=== PATIENT | male | born 1965 | race Caucasian/White ===

== ENCOUNTER 2017-09-02 09:15 | Emergency (ER) | payer BC ==
[~2017-09-02] VITALS: Ht 182.9 cm; Wt 90.0 kg
[2017-09-02 09:18] VITALS: BP 198/95; PULSE 83; RESP 16; TEMP 97.7; O2SAT 100
[2017-09-02] MEDS ORDERED: SODIUM CHLOR 0.9% 1000 ML INJ 1,000 ML IV SCH (09:32)
--- NOTE | 2017-09-02 09:38 | PD ---
HPI Chief Complaint: Abdominal Pain Time Seen by Provider: 09:20 Travel History International Travel<30 days: No Contact w/Intl Traveler<30days: No Traveled to known affect area: No History of Present Illness HPI 52-year-old male with PMH of GERD, hiatal hernia repair 2 presents the ED for evaluation of intermittent epigastric and right upper quadrant pain. Onset about a week ago. Rated 10/10, sharp, sometimes exacerbated by eating. No alleviating factors reported. Pain radiates into the back and into the right upper quadrant. Patient had episode of pain lasted 3 or 4 hours yesterday. Pain started again this morning around 8am after the patient ate a [place] toast. The patient endorses one episode of accompanying vomiting 1 week ago. He denies fevers, chills, nausea, difficulty swallowing, chest pain, palpitations, shortness of breath, changes in bowel habits, melena, hematochezia , dysuria. He can identify no acute injury. He has been treating with Zantac and Maalox with no improvement of symptoms. He saw his apprentice painter neckties last week and has a gastroscopy scheduled for next week. The patient is visiting from [place]. Quit smoking in 1999. No familial cardiac history. States he is otherwise healthy and takes no other daily medications. [facility] Social History Tobacco Use: No (quit 1999) Allergies-Medications (Allergen,Severity, Reaction): Coded Allergies: No Known Allergies (Unverified , 09/02/17) Reported Meds & Prescriptions Reported Meds & Active Scripts Active [place] (Hydrocodone-Acetaminophen) 5 Mg-325 Mg Tab 1 Tab PO Q6H PRN Ranitidine Liq (Ranitidine HCl) 15 Mg/Ml Syp 150 Mg PO BID 7 Days Reported Nexium (Esomeprazole DR) 40 Mg Capdr 40 Mg PO DAILY Review of Systems Except as stated in HPI: all other systems reviewed are Neg Physical Exam Narrative GENERAL: Well-nourished, well-developed white male no acute distress. SKIN: Focused skin assessment warm/dry. HEAD: Normocephalic. EYES: No scleral icterus. No injection or drainage. NECK: Supple, trachea midline. No JVD or lymphadenopathy. CARDIOVASCULAR: Regular rate and rhythm without murmurs, gallops, or rubs. RESPIRATORY: Breath sounds clear and equal bilaterally. No accessory muscle use. GASTROINTESTINAL: Abdomen soft, nondistended. Tender to palpation in the epigastric region. Active bowel sounds. Negative Ring sign. No palpable hepatosplenomegaly. MUSCULOSKELETAL: No cyanosis, or edema. BACK: Nontender without obvious deformity. No CVA tenderness. Data Data Last Documented VS Vital Signs Date Time Temp Pulse Resp B/P (MAP) Pulse Ox O2 Delivery O2 Flow Rate FiO2 09/02/17 11:44 70 16 152/84 (106) 98 09/02/17 09:51 Room Air 09/02/17 09:18 97.7 Orders Orders Urinalysis - C+S If Indicated (09/02/17 09:19) Complete Blood Count With Diff (09/02/17 09:32) Comprehensive Metabolic Panel (09/02/17 09:32) Lipase (09/02/17 09:32) Lactic Acid (09/02/17 09:32) Prothrombin Time / Inr (Pt) (09/02/17 09:32) Act Partial Throm Time (Ptt) (09/02/17 09:32) Ct Abd/Pel W Iv Contrast(Rout) (09/02/17 09:32) Iv Access Insert/Monitor (09/02/17 09:32) Ecg Monitoring (09/02/17 09:32) Oximetry (09/02/17 09:32) Sodium Chlor 0.9% 1000 Ml Inj (Ns 1000 M (09/02/17 09:32) Sodium Chloride 0.9% Flush (Ns Flush) (09/02/17 09:45) Electrocardiogram (09/02/17 09:32) Famotidine Inj (Pepcid Inj) (09/02/17 09:45) Al-Mag Hy-Si 40-40-4 Mg/Ml Liq (Mag-Al P (09/02/17 09:45) Lidocaine 2% Viscous (Xylocaine 2% Visco (09/02/17 09:45) Troponin I (09/02/17 09:32) Iohexol 350 Inj (Omnipaque 350 Inj) (09/02/17 10:42) Radiology Film Requests (09/02/17 ) Ed Discharge Order (09/02/17 11:25) Labs Laboratory Tests Test 09/02/17 09:35 09/02/17 09:40 09/02/17 10:35 White Blood Count 6.0 TH/MM3 Red Blood Count 5.86 MIL/MM3 Hemoglobin 16.4 GM/DL Hematocrit 49.9 % Mean Corpuscular Volume 85.2 FL Mean Corpuscular Hemoglobin 28.0 PG Mean Corpuscular Hemoglobin Concent 32.9 % Red Cell Distribution Width 12.0 % Platelet Count 220 TH/MM3 Mean Platelet Volume 8.1 FL Neutrophils (%) (Auto) 64.0 % Lymphocytes (%) (Auto) 31.4 % Monocytes (%) (Auto) 2.1 % Eosinophils (%) (Auto) 1.8 % Basophils (%) (Auto) 0.7 % Neutrophils # (Auto) 3.9 TH/MM3 Lymphocytes # (Auto) 1.9 TH/MM3 Monocytes # (Auto) 0.1 TH/MM3 Eosinophils # (Auto) 0.1 TH/MM3 Basophils # (Auto) 0.0 TH/MM3 CBC Comment DIFF FINAL Differential Comment Prothrombin Time 11.1 SEC Prothromb Time International Ratio 1.1 RATIO Activated Partial Thromboplast Time 22.8 SEC Blood Urea Nitrogen 17 MG/DL Creatinine 0.91 MG/DL Random Glucose 118 MG/DL Total Protein 7.4 GM/DL Albumin 4.0 GM/DL Calcium Level 9.9 MG/DL Alkaline Phosphatase 92 U/L Aspartate Amino Transf (AST/SGOT) 15 U/L Alanine Aminotransferase (ALT/SGPT) 20 U/L Total Bilirubin 0.9 MG/DL Sodium Level 141 MEQ/L Potassium Level 3.5 MEQ/L Chloride Level 105 MEQ/L Carbon Dioxide Level 25.1 MEQ/L Anion Gap 11 MEQ/L Estimat Glomerular Filtration Rate 87 ML/MIN Troponin I LESS THAN 0.02 NG/ML Lipase 145 U/L Lactic Acid Level 1.8 mmol/L Urine Collection Type CLEAN CATCH Urine Color YELLOW Urine Turbidity CLEAR Urine pH 8.5 Urine Specific [place] 1.015 Urine Protein TRACE mg/dL Urine Glucose (UA) NEG mg/dL Urine Ketones 15 mg/dL Urine Occult Blood NEG Urine Nitrite NEG Urine Bilirubin NEG Urine Urobilinogen 0.2 MG/DL Urine Leukocyte Esterase NEG Urine Squamous Epithelial Cells 0-5 /hpf Microscopic Urinalysis Comment CULT NOT INDICATED Urine Collection Time 1035 MDM Medical Decision Making Medical Screen Exam Complete: Yes Emergency Medical Condition: Yes Differential Diagnosis GERD versus PUD versus hiatial hernia versus cholecystitis versus esophageal stricture versus gastroparesis versus obstruction versus ACS versus other Narrative Course 52-year-old male with PMH of GERD, hiatal hernia repair 2 presents the ED for evaluation of intermittent epigastric pain. Occasionally exacerbated by eating. Radiates to the back and the right upper quadrant. Patient is on vacation from [place]. BP 198/95 on presentation. This improves during the course of his evaluation. On exam he has tenderness in the epigastric region. Negative Ring sign. IV was established. Patient was administered 1 L saline and GI cocktail. EKG rate 76, sinus rhythm. ME interval 140, QRS 97, QTc 405 ms. Normal axis. No acute ST changes. Reviewed by Dr. James. Cardiac enzymes negative x1. CBC: No leukocytosis or anemia. INR: 1.1. CMP: BUN 17, creatinine 0.91. Bilirubin 0.9, AST 15, ALT 20. Lipase [address] abdomen pelvis: Large hiatal hernia, intrathoracic stomach. Subcentimeter hepatic low densities, likely benign. On recheck patient reports improvement of his symptoms. I discussed the results the workup with the patient and his at bedside. Patient states that he will be in the area until Sunday but will coordinate follow-up while here. Will prescribe ranitidine syrup twice daily and a few doses of [place]. Patient was given detailed follow-up instructions, we discussed reasons to return to the ED. He indicated understanding of instructions and is agreeable to care plan. The patient is stable and discharged home. Diagnosis Primary Impression: Hiatal hernia with gastroesophageal reflux Referrals: Preconstruction Manager General Surgeon Additional Instructions: Rest, hydrate. Eat a bland diet for the next few days and gradually reintroduce new foods. Ranitidine syrup 150 mg twice a day. Hold Nexium while treating with ranitidine. Follow up with your apprentice painter neckties and general surgeon as discussed. Return to the ED for worsening symptoms, persistent pain, fevers or any other emergent medical condition. Med/Other Pt SpecificInfo: Prescription(s) given Scripts Hydrocodone-Acetaminophen ([place]) 5 Mg-325 Mg Tab 1 TAB PO Q6H Y for PAIN, #6 TAB 0 Refills Prov: Yoko James MD 09/02/17 Ranitidine Liq (Ranitidine Liq) 15 Mg/Ml Syp 150 MG PO BID for 7 Days, ML 0 Refills Prov: Yoko James MD 09/02/17 Disposition: 01 DISCHARGE HOME Condition: Stable Nabila Rodriguez Sep 02, 2017 09:38
[2017-09-02 09:42] LABS: AUTOMATED NEUTROPHIL # 3.9 TH/MM3 (1.8-7.7); BASOPHIL % 0.7 % (0.0-2.0); EOSINOPHIL # 0.1 TH/MM3 (0-0.4); EOSINOPHIL % 1.8 % (0.0-4.0); HEMATOCRIT 49.9 % (39.0-51.0); HEMOGLOBIN 16.4 GM/DL (13.0-17.0); LYMPH % 31.4 % (9.0-44.0); LYMPHOCYTE # 1.9 TH/MM3 (1.0-4.8); MEAN CELL VOLUME 85.2 FL (80.0-100.0); MEAN CORPUSCULAR HGB CONC 32.9 % (32.0-36.0); MEAN PLATELET VOLUME 8.1 FL (7.0-11.0); MONO % 2.1 % (0.0-8.0); MONOCYTE # 0.1 TH/MM3 (0-0.9); PLATELET COUNT 220 TH/MM3 (150-450); RED BLOOD COUNT 5.86 MIL/MM3 (4.50-5.90)
[2017-09-02] MEDS ORDERED: LIDOCAINE VISCOUS 2% SOLN 15 ML UDC PO ONE (09:45)
[2017-09-02] MEDS ORDERED: FAMOTIDINE 20 MG/2 ML VIAL IV PUSH ONE (09:45)
[2017-09-02] MEDS ORDERED: SODIUM CHLORIDE 0.9% FLUSH 10 ML FLUSH IV FLUSH PRN (09:45)
[2017-09-02] MEDS ORDERED: ALUMINUM/MAGNESIUM/SIMETH 30 ML CUP PO ONE (09:45)
[2017-09-02 09:51] VITALS: O2SAT 99
[2017-09-02] MEDS ORDERED: NEXI40CA PO (09:54)
[2017-09-02 09:58] LABS: INTERNATIONAL NORMALIZED RATIO 1.1 RATIO; PROTHROMBIN TIME - PATIENT 11.1 SEC (9.8-11.6)
[2017-09-02 09:59] LABS: CALCIUM 9.9 MG/DL (8.5-10.1)
[2017-09-02 10:00] LABS: BICARBONATE 25.1 MEQ/L (21.0-32.0); BLOOD UREA NITROGEN 17 MG/DL (7-18); GLUCOSE,RANDOM 118 MG/DL (74-106)
[2017-09-02 10:02] LABS: ALT (GPT) 20 U/L (12-78); AST (GOT) 15 U/L (15-37)
[2017-09-02 10:03] LABS: CREATININE 0.91 MG/DL (0.60-1.30); GLOMERULAR FILTRATION RATE 87 ML/MIN (>89)
[2017-09-02 10:04] LABS: CHLORIDE 105 MEQ/L (98-107); SODIUM (NA) 141 MEQ/L (136-145); TOTAL PROTEIN 7.4 GM/DL (6.4-8.2)
[2017-09-02 10:05] LABS: ALKALINE PHOSPHATASE 92 U/L (45-117)
[2017-09-02 10:10] LABS: TOTAL BILIRUBIN ADULT 0.9 MG/DL (0.2-1.0)
[2017-09-02 10:11] LABS: TROPONIN I LESS THAN 0.02 NG/ML (0.02-0.05)
[2017-09-02] MEDS ORDERED: IOHEXOL 350 MG/ML 10 ML VIAL (for RAD DIAG) IVCONTRAST ONE (10:42)
[2017-09-02 10:43] LABS: BILIRUBIN, URINE NEG (NEG); BLOOD, URINE NEG (NEG); GLUCOSE,URINE NEG (NEG); KETONE, URINE 15 mg/dL (NEG); NITRITE,URINE NEG (NEG); PH, URINE 8.5 (5.0-8.5); URINE COLOR YELLOW (YELLW/STRAW); URINE LEUKOCYTE ESTERASE NEG (NEG)
[2017-09-02 10:47] LABS: SQUAMOUS EPITHELIAL CELL URINE 0-5 /hpf (0-5)
--- NOTE | 2017-09-02 10:51 | RADRPT ---
EXAM DATE: 09/02/2017 10:46 AM EDT AGE/SEX: 52 years / Male INDICATIONS: Epigastric and right upper quadrant pain. CLINICAL DATA: This is the patient's initial encounter. Patient reports that signs and symptoms have been present for 3 days and indicates a pain score of 4/10. MEDICAL/SURGICAL HISTORY: None. . Hiatal hernia repair. ORAL CONTRAST: No oral contrast ingested. RADIATION DOSE: 14.76 CTDI (mGy) COMPARISON: No prior exams available for comparison. TECHNIQUE: Multiple contiguous axial images were obtained through the abdomen and pelvis following b olus infusion of 95 ml Omnipaque 350 (iohexol) nonionic water-soluble contrast as a single exam dos e. No oral contrast ingested. Using automated exposure control and adjustment of the mA and/or kV ac cording to patient size, radiation dose was kept as low as reasonably achievable to obtain optimal di agnostic quality images. DICOM format image data is available electronically for review and comparis on. FINDINGS: Lower Lungs: The visualized lower lungs are clear. Liver: The liver has a homogeneous density with small benign-appearing low-density lesions. There is no dilation of the biliary tree. No calcified gallstones. Spleen: Homogeneous density without enlargement. Pancreas: Unremarkable without mass or calcification. Kidneys: Normal in size and shape. No evidence of mass or hydronephrosis. Adrenal Glands: Unremarkable. Aorta: Atherosclerotic changes of the abdominal aorta without aneurysmal dilation. Bowel/Mesentery: Large hiatal hernia with intrathoracic stomach. No bowel obstruction. Small large b owel loops. Unremarkable. Appendix is normal. Abdominal Wall: Intact. Retroperitoneum: No evidence of adenopathy in the retrocrural, para-aortic, or deep pelvic regions. Bladder: Contours are smooth. Reproductive Organs: No abnormal masses or calcifications seen. Inguinal: The inguinal region is unremarkable without evidence of adenopathy. Bony Structures: Unremarkable. CONCLUSION: 1. Large hiatal hernia/intrathoracic stomach. This may be a cause for patient's pain. 2. Subcentimeter hepatic low densities, likely benign. Electronically signed by: Grant Bliss MD 09/02/2017 10:50 AM EDT
[2017-09-02] MEDS ORDERED: RANI75SY PO (11:24)
[2017-09-02] MEDS ORDERED: NORC5TAB PO (11:33)
--- NOTE | 2017-09-02 11:38 | PD ---
Physical Exam Narrative I, Dr. James, have reviewed the advance practice practitioner's documentation and am in agreement, met with the patient face to face, made the diagnosis, and the medical decision making was done by me. *My assessment and Findings: Please see mid-level note for full history and physical and disposition per patient presents to the emergency department complaining of epigastric pain started in May has increased in severity of the past month. He has had 2 hernia surgeries. Visiting from out of town and describes the pain as being constant, 9 out of 10, nonradiating, alleviated with walking around, factors. Denies fever, chills, nausea, vomiting, shortness of breath, edema, cough. States that his cholesterol was normal and his physical in March. Has no hypertension or diabetes. He is a non-smoker. The symptoms are consistent with his reflux/ulcer disease. He is on Nexium currently. Repeat BP 152/84. Data Data Last Documented VS Vital Signs Date Time Temp Pulse Resp B/P (MAP) Pulse Ox O2 Delivery O2 Flow Rate FiO2 09/02/17 09:51 99 Room Air 09/02/17:18 97.7 83 16 198/95 (129) Orders Orders Urinalysis - C+S If Indicated (09/02/17 09:19) Complete Blood Count With Diff (09/02/17 09:32) Comprehensive Metabolic Panel (09/02/17 09:32) Lipase (09/02/17 09:32) Lactic Acid (09/02/17 09:32) Prothrombin Time / Inr (Pt) (09/02/17 09:32) Act Partial Throm Time (Ptt) (09/02/17 09:32) Ct Abd/Pel W Iv Contrast(Rout) (09/02/17 09:32) Iv Access Insert/Monitor (09/02/17 09:32) Ecg Monitoring (09/02/17 09:32) Oximetry (09/02/17 09:32) Sodium Chlor 0.9% 1000 Ml Inj (Ns 1000 M (09/02/17 09:32) Sodium Chloride 0.9% Flush (Ns Flush) (09/02/17 09:45) Electrocardiogram (09/02/17 09:32) Famotidine Inj (Pepcid Inj) (09/02/17 09:45) Al-Mag Hy-Si 40-40-4 Mg/Ml Liq (Mag-Al P (09/02/17 09:45) Lidocaine 2% Viscous (Xylocaine 2% Visco (09/02/17 09:45) Troponin I (09/02/17 09:32) Iohexol 350 Inj (Omnipaque 350 Inj) (09/02/17 10:42) Radiology Film Requests (09/02/17 ) Ed Discharge Order (09/02/17 11:25) Labs Laboratory Tests Test 09/02/17 09:35 09/02/17 09:40 09/02/17 10:35 White Blood Count 6.0 TH/MM3 Red Blood Count 5.86 MIL/MM3 Hemoglobin 16.4 GM/DL Hematocrit 49.9 % Mean Corpuscular Volume 85.2 FL Mean Corpuscular Hemoglobin 28.0 PG Mean Corpuscular Hemoglobin Concent 32.9 % Red Cell Distribution Width 12.0 % Platelet Count 220 TH/MM3 Mean Platelet Volume 8.1 FL Neutrophils (%) (Auto) 64.0 % Lymphocytes (%) (Auto) 31.4 % Monocytes (%) (Auto) 2.1 % Eosinophils (%) (Auto) 1.8 % Basophils (%) (Auto) 0.7 % Neutrophils # (Auto) 3.9 TH/MM3 Lymphocytes # (Auto) 1.9 TH/MM3 Monocytes # (Auto) 0.1 TH/MM3 Eosinophils # (Auto) 0.1 TH/MM3 Basophils # (Auto) 0.0 TH/MM3 CBC Comment DIFF FINAL Differential Comment Prothrombin Time 11.1 SEC Prothromb Time International Ratio 1.1 RATIO Activated Partial Thromboplast Time 22.8 SEC Blood Urea Nitrogen 17 MG/DL Creatinine 0.91 MG/DL Random Glucose 118 MG/DL Total Protein 7.4 GM/DL Albumin 4.0 GM/DL Calcium Level 9.9 MG/DL Alkaline Phosphatase 92 U/L Aspartate Amino Transf (AST/SGOT) 15 U/L Alanine Aminotransferase (ALT/SGPT) 20 U/L Total Bilirubin 0.9 MG/DL Sodium Level 141 MEQ/L Potassium Level 3.5 MEQ/L Chloride Level 105 MEQ/L Carbon Dioxide Level 25.1 MEQ/L Anion Gap 11 MEQ/L Estimat Glomerular Filtration Rate 87 ML/MIN Troponin I LESS THAN 0.02 NG/ML Lipase 145 U/L Lactic Acid Level 1.8 mmol/L Urine Collection Type CLEAN CATCH Urine Color YELLOW Urine Turbidity CLEAR Urine pH 8.5 Urine Specific [place] 1.015 Urine Protein TRACE mg/dL Urine Glucose (UA) NEG mg/dL Urine Ketones 15 mg/dL Urine Occult Blood NEG Urine Nitrite NEG Urine Bilirubin NEG Urine Urobilinogen 0.2 MG/DL Urine Leukocyte Esterase NEG Urine Squamous Epithelial Cells 0-5 /hpf Microscopic Urinalysis Comment CULT NOT INDICATED Urine Collection Time 1035 MDM Supervised Visit with INDIGO: Yes Interpretation(s) ECG: Rhythm, rate 76 T-wave inversion in lead III and V1, no STEMI, insignificant Q-wave in 1 and 2 Labs: Normal troponin, slightly increased glucose, small ketones in urine Last Impressions Abdomen/Pelvis CT 09/02/17 0932 Signed Impressions: CONCLUSION: 1. Large hiatal hernia/intrathoracic stomach. This may be a cause for patient' s pain. 2. Subcentimeter hepatic low densities, likely benign. Diagnosis Primary Impression: Hiatal hernia with gastroesophageal reflux Referrals: Post Adoption Coordinator General Surgeon Patient Instructions: General Instructions Departure Forms: Tests/Procedures Additional Instruction: Rest, hydrate. Eat a bland diet for the next few days and gradually reintroduce new foods. Ranitidine syrup 150 mg twice a day. Hold Nexium while treating with ranitidine. Follow up with your vigoureux printer and general surgeon as discussed. Return to the ED for worsening symptoms, persistent pain, fevers or any other emergent medical condition. Med/Other Pt SpecificInfo: Prescription(s) given Scripts Ranitidine Liq (Ranitidine Liq) 15 Mg/Ml Syp 150 MG PO BID for 7 Days, ML 0 Refills Prov: Yoko James MD 09/02/17 Disposition: 01 DISCHARGE HOME Condition: Stable Yoko James MD Sep 02, 2017 11:38
[2017-09-02 11:44] VITALS: BP 152/84
--- NOTE | 2017-09-02 13:52 | EKG ---
Date Performed: 09/02/2017 Time Performed: 09:54:07 PTAGE: 52 years EKG: Sinus rhythm POSSIBLE LEFT ATRIAL ENLARGEMENT NONSPECIFIC T-WAVE ABNORMALITY BORDERLINE ECG INTERPRETATION BASED ON A DEFAULT AGE OF 40 YEARS NO PREVIOUS TRACING DOCTOR: Zachary Bro Interpretating Date/Time 09/02/2017 13:51:39
== END 2017-09-02 11:46 | disposition home or self-care (01) ==
LOC: PHED 09:15
DX: K21.9 Gastro-esophageal reflux disease without esophagitis (principal); K44.9 Diaphragmatic hernia without obstruction or gangrene; R94.31 Abnormal electrocardiogram [ECG] [EKG]; Z87.891 Personal history of nicotine dependence
CPT/HCPCS: 74177; 80053; 81001; 83605; 83690; 84484; 85025; 85610; 85730; 93005; 96361; 96374; 99285; J7030; Q9967